=== PATIENT | female | born 1985 | race Caucasian/White ===

== ENCOUNTER 2016-04-17 09:36 | Day surgery (SDC) | payer OTHER ==
[~2016-04-17 09:36] MED LIST: IV START KIT ONE; LACTATED RINGERS 1,000 ML IV SCH; LACTATED RINGERS 1,000 ML ONE
[2016-04-17] MEDS ORDERED: LIDOCAINE 2% (PRES FREE) 5 ML VIAL ONE (09:41)
[2016-04-17] MEDS ORDERED: PROPOFOL 0 ML IV ONE (09:41)
== END 2016-04-17 10:40 | disposition home or self-care (01) ==
LOC: SDC 09:36
PROVIDERS: ATTEND Internal Medicine Gastroenterology
DX: K62.5 Hemorrhage of anus and rectum (principal); R10.33 Periumbilical pain; F41.8 Other specified anxiety disorders; F43.10 Post-traumatic stress disorder, unspecified; M79.7 Fibromyalgia; G62.9 Polyneuropathy, unspecified; Z88.5 Allergy status to narcotic agent

== ENCOUNTER 2016-04-27 10:28 | Emergency (ER) | payer OTHER ==
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
== END 2016-04-27 13:50 | disposition home or self-care (01) ==
LOC: ED 10:28
DX: M79.642 Pain in left hand (principal)